=== PATIENT | female | born 1955 | race Caucasian/White ===

== ENCOUNTER 2020-02-04 13:45 | Outpatient (CLI) | payer SELFPAY ==
[2020-02-04 15:59] LABS: #Basophils 0.1 10x3/uL (0.0-0.2); #Eosinphils 0.1 10x3/uL (0.0-0.5); #Monocytes 0.6 10x3/uL (0.0-1.1); #Neutrophils 6.3 10x3/uL (1.5-8.4); %Basophils 0.6 % (0.0-2.0); %Eosinophils 1.4 % (0.0-6.0); %Neutrophils 71.5 % (40.0-75.0); Hemoglobin 14.8 g/dL (12.0-16.0); Mean Corpuscular HGB CONC 31.4 G/DL (32.0-36.0); Mean Corpuscular Hemoglobin 26.6 PG (27.0-33.0); Mean Corpuscular Volume 84.7 fl (80.0-100.0); Mean Platelet Volume 10.4 fl (7.4-10.4); Platelet Count 185 10x3/uL (130-400); Red Blood Cell (RBC) Count 5.56 10x6/uL (3.90-5.20); White Blood Cell (WBC) Count 8.8 10x3/uL (4.5-11.0)
[2020-02-04 16:00] LABS: Bilirubin Neg (Negative); Blood, Urine 10 (Negative); Clarity Slightly Cloudy (Clear); Glucose, Urine (Dipstick) Normal (Negative); Ketone, Urine Negative (Negative); Leukocyte 100 (Negative); Nitrite Negative (Negative); Protein, Urine (Dipstick) 30 mg/dl (Neg-Trace); Specific Gravity, Urine 1.025 (1.002-1.036)
[2020-02-04 16:17] LABS: RBC/HPF 0-3 HPF (0-3)
[2020-02-04 16:18] LABS: Bacteria/HPF Rare-Few HPF (None Seen); Calcium Oxalate Crystals 3+ HPF (None Seen); Mucous/LPF 1+ LPF (<2+)
[2020-02-05 03:08] LABS: SARS-CoV-2 MS2 Positive; SARS-CoV-2 N Gene Negative; SARS-CoV-2 S Gene Negative; SARS-CoV-2 by NAA Not Detected (NotDetected); SARS-CoV-2 orf1ab Negative
--- NOTE | 2020-02-05 16:09 | EKG ---
Test Reason : Blood Pressure : / mmHG Vent. Rate : 079 BPM Atrial Rate : 079 BPM P-R Int : 168 ms QRS Dur : 112 ms QT Int : 388 ms P-R-T Axes : 061 068 052 degrees QTc Int : 444 ms Normal sinus rhythm Intraventricular conduction delay Cannot rule out Anterior infarct , age undetermined Poor anterior R wave progression Abnormal ECG No previous ECGs available Confirmed by DR. Sergey BAILEY ([id number]) on 02/05/2020 4:08:36 PM Referred By: SASKIA Confirmed By:DR. Sergey BAILEY
== END 2020-02-04 13:46 | disposition home or self-care (01) ==
LOC: LABBT 13:45
PROVIDERS: ATTEND Orthopaedic Surgery Hand Surgery
DX: Z01.818 Encounter for other preprocedural examination (principal); S62.101A Fracture of unspecified carpal bone, right wrist, initial encounter for closed fracture; Z20.828 Contact with and (suspected) exposure to other viral communicable diseases
CPT/HCPCS: 81001; 85025; 87635; 93005; 93010; U0003

== ENCOUNTER 2020-02-09 08:02 | Day surgery (SDC) | payer OTHER ==
[2020-02-08 11:50] VITALS: BMI 43.3
[2020-02-09] MEDS ORDERED: Midazolam HCl 2 mg/2 ml Vial ONE (09:39)
[2020-02-09] MEDS ORDERED: Fentanyl 100 MCG/2 ML VIAL ONE ×2 (09:39→10:39)
[2020-02-09] MEDS ORDERED: Scopolamine 1.5 mg/72 hour Patch ONE (10:31)
[2020-02-09] MEDS ORDERED: Bacitracin Zinc Ointment 30 gm TUBE ONE (10:34)
[2020-02-09] MEDS ORDERED: Bupivacaine PF 0.5% 30 ML VIAL ONE (10:34)
[2020-02-09] MEDS ORDERED: Sodium Chloride 0.9% 10 ML ONE (10:34)
[2020-02-09] MEDS ORDERED: EPINEPHrine 1 MG/ML AMP ONE (10:34)
[2020-02-09] MEDS ORDERED: Dexmedetomidine 200 MCG/2 ML VIAL ONE (10:39)
[2020-02-09] MEDS ORDERED: Vancomycin 1 GM/200 ML BAG ONE (10:48)
[2020-02-09] MEDS ORDERED: ePHEDrine 50 MG/ML VIAL ONE (11:35)
[2020-02-09] MEDS ORDERED: PROPOFOL 200 MG/20 ML VIAL ONE (11:35)
[2020-02-09] MEDS ORDERED: Ketorolac Tromethamine 30 MG/ML VIAL ONE (11:35)
[2020-02-09] MEDS ORDERED: Dexamethasone 20 MG/5 ML VIAL ONE (11:35)
[2020-02-09] MEDS ORDERED: Bupivacaine HCl 0.5%/Epinephrine 1:200,000/PF 30 ml Vial ONE (11:35)
[2020-02-09] MEDS ORDERED: Ondansetron PF 4 MG/2 ML Vial ONE (11:35)
[2020-02-09] MEDS ORDERED: Lidocaine 1% PF 5 ML VIAL ONE (11:35)
--- NOTE | 2020-02-09 15:07 | RAD ---
RIGHT WRIST TWO VIEWS: 02/09/20 HISTORY: Postop. These are C-arm views which show pin placement and plate and screws related to fixation of the distal radial fracture. IMPRESSION: Postop changes of the distal radius. POS: ELISE
--- NOTE | 2020-02-10 02:20 | OP ---
DATE OF PROCEDURE: 02/09/2020 PREOPERATIVE DIAGNOSIS: Distal radius fracture four part with ulnar styloid fracture and intraarticular loose body. POSTOPERATIVE DIAGNOSIS: Distal radius fracture four part with ulnar styloid fracture and intraarticular loose body. PROCEDURES PERFORMED: 1. Arthrotomy with loose body debridement. 2. Open reduction and internal fixation of four-part distal radius fracture. 3. Bone grafting using allograft cadaver bone, approximately 8 mL. 4. C-arm supervision. ESTIMATED BLOOD LOSS: 20 mL. TOURNIQUET TIME: 107 minutes. ANESTHESIA: General LMA technique augmented by preoperative excellent supraclavicular block. INDICATIONS: Patient sustained distal radius fracture that in the clinic was a four-part fracture with both a Melone complex and the styloid complex split longitudinally in the sagittal plane and both were displaced widely with a loose intraarticular piece that had to be addressed in order to achieve good results. DESCRIPTION OF PROCEDURE: After successful endotracheal affect, the limb was prepped and draped. We then exsanguinated the limb and inflated the tourniquet to 250 mmHg pressure. We were then able to use the C-arm to identify closed reduction and we failed and thus we followed the interval between the flexor carpi radialis and the radial artery to reach the distal radius fracture joint capsule. We then opened this to a point 5 to 6 mm distal joint capsule, begin to remove the capsule off its volar distal radius position and once we had done this, we then opened the joint for formal arthrotomy, followed debrided and radiographs from the C-arm to the loose body removed it. It was 6 mm long x 3 mm wide very thin sleeve of volar capsule. After we had removed the loose body and irrigated, we were then able to perform open reduction, first reducing the frontal sagittal plane, styloid portion and secured with appropriate tilt to the radial shaft with separate K-wires x3. Then we were able to reduce the Melone complex in frontal sagittal plane with excellent inclination and tilt and sagittal plane correction was to 0. We then brought on a low-profile [employer]ynthe[employer] variable angle distal humerus fracture plate with 5 holes across the top and 5 down the shaft. We then placed this plate with the guide in appropriate construct position, but before we even did this, we had placed copious amounts of bone graft on the C-arm, moderate amount of bone graft deep from dorsal to palmar and then from superior to inferior until we had filled in all gaps from the pinning, which was nearly anatomical position, but had some chondral loss from crush. Once we had done this and the plate was placed, it was secured with 2 K-wires per standard technique, and then used standard drill measured screw technique for the distal row with 5 holes, initially using on the radial styloid portion x1, a locking cortical screw, through which we placed all 5 screws in position, this elevated the plate off the bone and at the proximal screw head site. We placed this screw in as a 2.7, which was slightly bigger than 2.4 used above. Once this was done, we then had approximately 5 degree of palmar tilt for apex dorsal, which is much more anatomic than what the patient would have had. Once we had finished the bone graft and had placed the plate and screws distally, we then placed a proximal plate and removed most of the K-wires to achieve another 5 to 6 degrees of apex dorsal palmar tilt. This was more than satisfactory height inclination. There were no loose bodies in the joint, we could see one fracture line, but it had been filled, then we grasped subcutaneously and there was no defect in the bone graft. We left 2 K-wire that were subchondral from the radial styloid crisscross into the ulnar Melone complex because of the quality of bone. Tourniquet was deflated and hemostasis obtained. We found the artery and the brachioradialis, which had been released for the fixation, and we were then able to tighten the plate with a standard drill and screw technique extending from the primary fracture line and once this was done, there was no evidence of lucency seen. The patient then left the operating room without evidence of anesthetic or operative complications. Job ID: [id number]
== END 2020-02-09 15:49 | disposition home or self-care (01) ==
LOC: SDC 08:02
PROVIDERS: ATTEND Orthopaedic Surgery Hand Surgery
DX: S52.571A Other intraarticular fracture of lower end of right radius, initial encounter for closed fracture (principal); M19.90 Unspecified osteoarthritis, unspecified site; Z88.0 Allergy status to penicillin; W19.XXXA Unspecified fall, initial encounter
CPT/HCPCS: 76000; C1713; J0171; J1100; J1885; J2250; J2405; J2704; J3010; J3370; J3490; S0020